=== PATIENT | male | born 1970 ===

== ENCOUNTER 2017-10-01 17:49 | Observation (INO) | payer OTHER ==
[2017-10-01 19:16] LABS: BASO # 0.05 K/mm3 (0.0-2.0); BASO % 0.6 % (0.0-3.0); EOS # 0.1 (0.0-0.7); EOS % 0.6 % (1.5-5.0); GRAN # 6.35 (1.4-6.5); GRAN % 70.2 % (50.0-68.0); HEMATOCRIT 42.4 % (42.0-52.0); LYMPH # 2.1 (1.2-3.4); MEAN CORPUSCULAR HEMOGLOBIN 30.6 pg (25.0-35.0); MEAN PLATELET VOLUME 9.5 fl (7.0-11.0); MONO # 0.5 (0.1-0.6); MONO % 5.6 % (1.0-6.0); RED CELL DISTRIBUTION WIDTH 13.7 % (11.5-14.5)
[2017-10-01 19:26] LABS: INR 1.03 (0.93-1.08); PARTIAL THROMBOPLASTIN TIME 25.9 Seconds (25.1-36.5)
[2017-10-01 19:32] LABS: TROPONIN I < 0.01 ng/mL
[2017-10-01 19:35] LABS: ALB/GLOB RATIO 1.6 (1.1-1.8); ALKALINE PHOSPHATASE 83 U/L (38-126); ALT/SGPT 49 U/L (7-56); AST/SGOT 51 U/L (17-59); BILIRUBIN,TOTAL 0.8 mg/dL (0.2-1.3); BLOOD UREA NITROGEN 20 mg/dL (7-21); CALCIUM 9.6 mg/dL (8.4-10.5); CARBON DIOXIDE 22 mmol/L (21-33); CHLORIDE 97 mmol/L (98-107); GFR AFRICAN-AMERICAN > 60; GLUCOSE,RANDOM 142 mg/dL (70-110); MAGNESIUM 1.6 mg/dL (1.7-2.2); PHOSPHOROUS 4.5 mg/dL (2.5-4.5); POTASSIUM 4.5 mmol/L (3.6-5.0); SODIUM 139 mmol/L (132-148); TOTAL PROTEIN 7.6 g/dL (5.8-8.3)
[2017-10-01] MEDS ORDERED: Sodium Chloride 0.9% 1,000 ML IV STA (20:22)
--- NOTE | 2017-10-01 21:06 | CT ---
EXAM: CT Head Without Intravenous Contrast CLINICAL HISTORY: 47 years old, male; Signs and symptoms; Syncope and collapse TECHNIQUE: Axial computed tomography images of the head/brain without intravenous contrast. All CT scans at this facility use one or more dose reduction techniques, viz.: automated exposure control; ma/kV adjustment per patient size (including targeted exams where dose is matched to indication; i.e. head); or iterative reconstruction technique. COMPARISON: No relevant prior studies available. FINDINGS: Brain: Mild atrophy. No intracranial hemorrhage. No mass. No definite edema. Ventricles: No hydrocephalus. Bones/joints: No acute fracture. Soft tissues: Unremarkable. Sinuses: Scattered minimal to mild mucosal thickening. Mastoid air cells: No mastoid effusion. Orbits: Unremarkable as visualized. IMPRESSION: 1. No definite acute intracranial abnormality. Acute infarction may be CT occult within first 24 hours. If a focal deficit persists, consider followup CT or MRI for further evaluation. 2. Incidental/non-acute findings are described above.
--- NOTE | 2017-10-01 21:22 | ED PDOC ---
Arrival/HPI - General Chief Complaint: Syncope Time Seen by Provider: 10/01/17 17:57 Historian: Patient - History of Present Illness Narrative History of Present Illness (Text): 10/01/17 21:18 47yo male with PMHx significant for hypertension and Diabetes biba for syncopal episode. Patient states he was told that he had syncopal episode at work. States he is not sure what happened. He also sustained chin laceration. Notes his last TD vaccine was last year. He denies any somatic complaint. Denies chest pain, SOB, and focal weakness, dizziness, headache, nausea, vomiting, abdominal pain, any other complaint. Past Medical History - Provider Review Nursing Documentation Reviewed: Yes - Cardiac Hx Hypertension: Yes - Pulmonary Hx Respiratory Disorders: No - Psychiatric Hx Substance Use: No - Anesthesia Hx Anesthesia Reactions: No Family/Social History - Physician Review Nursing Documentation Reviewed: Yes Family/Social History: Unknown Family HX Smoking Status: Unknown If Ever Smoked Hx Alcohol Use: Yes Frequency of alcohol use: Socially Hx Substance Use: No Allergies/Home Meds Allergies/Adverse Reactions: Allergies No Known Allergies Allergy (Verified 10/01/17 18:09) Home Medications: Home Meds Medication Instructions Recorded Confirmed Lisinopril [Zestril] 10 mg PO DAILY 10/01/17 10/01/17 MetFORMIN [glucOPHAGE] 500 mg PO BID 10/01/17 10/01/17 Simvastatin 10 mg PO DAILY 10/01/17 10/01/17 Review of Systems - Physician Review All systems were reviewed & negative as marked: Yes - Review of Systems Constitutional: Normal Eyes: Normal ENT: Normal Respiratory: Normal Cardiovascular: Normal Gastrointestinal: Normal Genitourinary Male: Normal Musculoskeletal: Normal Skin: Laceration (chin) Neurological: Other (Syncope) Endocrine: Normal Hemo/Lymphatic: Normal Psychiatric: Normal Physical Exam Vital Signs Reviewed: Yes Vital Signs Temp Pulse Resp BP Pulse Ox 10/01/17 18:00 97.7 F 78 16 118/70 100 Temperature: Afebrile Blood Pressure: Normal Pulse: Regular Respiratory Rate: Normal Appearance: Positive for: Well-Appearing, Non-Toxic, Comfortable Pain Distress: None Mental Status: Positive for: Alert and Oriented X 3 - Systems Exam Head: Present: Atraumatic, Normocephalic Pupils: Present: PERRL Extroacular Muscles: Present: EOMI Conjunctiva: Present: Normal Mouth: Present: Moist Mucous Membranes Neck: Present: Normal Range of Motion Respiratory/Chest: Present: Clear to Auscultation, Good Air Exchange. No: Respiratory Distress, Accessory Muscle Use Cardiovascular: Present: Regular Rate and Rhythm, Normal S1, S2. No: Murmurs Abdomen: Present: Normal Bowel Sounds. No: Tenderness, Distention, Peritoneal Signs Back: Present: Normal Inspection Upper Extremity: Present: Normal Inspection. No: Cyanosis, Edema Lower Extremity: Present: Normal Inspection. No: Edema Neurological: Present: GCS=15, CN II-XII Intact, Speech Normal, Motor Func Grossly Intact, Normal Sensory Function, Normal Cerebellar Funct, Norm Deep Tendon Reflexes, Gait Normal, Memory Normal, Normal 2Pt Descrimination, Other ( No focal neurological deficit) Skin: Present: Warm, Dry, Normal Color, Laceration (1.6cm linear laceration on chin). No: Rashes Psychiatric: Present: Alert, Oriented x 3, Normal Insight, Normal Concentration Medical Decision Making ED Course and Treatment: 10/01/17 21:24 Pt biba for syncopal episode. He was AAO x3 in ED. Neurologically intact. Lab was unremarkable. Alcohol level of 35 was notee and pt admitted to drinking alcohol last night. Head CT was negative EKG NSR @79bpm. No ST changes. Secondary to the history, cardiogenic or neurologic cause of syncope cannot be r /o. PT will be placed on OBS for further evaluation. All result and plan was DW the pt and he agreed Case was DW Dr. Clemente and pt was admitted. - Lab Interpretations Lab Results: 10/01/17 18:30 10/01/17 18:30 Lab Results 10/01/17 18:30: Alcohol, Quantitative 32 H 10/01/17 18:30: Sodium 139, Potassium 4.5, Chloride 97 L, Carbon Dioxide 22, Anion Gap 24 H, BUN 20, Creatinine 1.2, Est GFR ( Amer) > 60, Est GFR ( Non-Af Amer) > 60, Random Glucose 142 H, Calcium 9.6, Phosphorus 4.5, Magnesium 1.6 L, Total Bilirubin 0.8, AST 51, ALT 49, Alkaline Phosphatase 83, Lactate Dehydrogenase 511, Total Creatine Kinase 543 H, CK-MB (CK-2) 6.0 H, CK-MB (CK-2 ) % 1.1 L, Troponin I < 0.01, Total Protein 7.6, Albumin 4.7, Globulin 2.9, Albumin/Globulin Ratio 1.6 10/01/17 18:30: PT 11.2, INR 1.03, APTT 25.9 10/01/17 18:30: WBC 9.0, RBC 4.71, Hgb 14.4, Hct 42.4, MCV 90.0, MCH 30.6, MCHC 34.0, RDW 13.7, Plt Count 284, MPV 9.5, Gran % 70.2 H, Lymph % (Auto) 23.0, [place] % (Auto) 5.6, Eos % (Auto) 0.6 L, Baso % (Auto) 0.6, Gran # 6.35, Lymph # 2.1, [place] # 0.5, Eos # 0.1, Baso # 0.05 - RAD Interpretation Radiology Orders: 10/01/17 18:19 HEAD W/O CONTRAST [CT] Stat - Medication Orders Current Medication Orders: Aspirin (Ecotrin) 81 mg PO DAILY TERRY Atorvastatin Calcium (Lipitor) 10 mg PO DIN TERRY Famotidine (Pepcid) 20 mg IVP DAILY TERRY Folic Acid (Folic Acid) 1 mg PO DAILY TERRY Hydralazine HCl (Apresoline) 10 mg IVP Q6 PRN PRN Reason: Systolic Blood Pressure Multivitamins/Vitamin C 10 ml/Thiamine HCl 100 mg/ Folic Acid 1 mg/ Sodium Chloride 1,011.2 mls @ 500 mls/hr IV .Q2H2M ONE Stop: 10/01/17 23:27 Sodium Chloride (Sodium Chloride 0.9%) 1,000 mls @ 125 mls/hr IV .Q8H TERRY Last Admin: 10/01/17 22:02 Dose: 125 mls/hr eMAR Start Stop Document 10/01/17 22:02 AD (Rec: 10/01/17 22:02 AD [id number]) Intravenous Solution Start Date 10/01/17 Start Time 21:55 Insulin Human Lispro (Humalog Med) 0 units SC ACHS TERRY PRN Reason: Protocol Lisinopril (Zestril) 10 mg PO DAILY TERRY Lorazepam (Ativan) 1 mg IVP Q1 PRN; Protocol PRN Reason: Symptoms of alcohol withdrawl Multivitamins (Thera Tab) 1 tab PO 0800 [facility] Ondansetron HCl (Zofran Inj) 4 mg IVP Q6H PRN PRN Reason: Nausea/Vomiting Thiamine HCl (Vitamin B1 Tab) 100 mg PO DAILY [facility] Discontinued Medications Bacitracin (Bacitracin) 1 ea TOP ONCE ONE Stop: 10/01/17 21:56 Sodium Chloride (Sodium Chloride 0.9%) 1,000 mls @ 999 mls/hr IV .Q1H1M STA Stop: 10/01/17 21:22 Last Admin: 10/01/17 20:32 Dose: 999 mls/hr eMAR Start Stop Document 10/01/17 20:32 AD (Rec: 10/01/17 20:32 AD [id number]) Intravenous Solution Start Date 10/01/17 Start Time 20:32 Sodium Chloride (Sodium Chloride 0.9%) 1,000 mls @ 150 mls/hr IV .Q6H40M [facility] Procedure: Wound Repair - Consent Obtained Consent obtained: Verbal - Performed by Performed by: Mid-level Provider - Indications Indication(s):: Laceration - Location Location:: Chin Shape:: Linear Dimensions Length cm: 1.6 - Anesthetic Technique Anesthetic Technique: Local Local/Regional Anesthetic:: Lidocaine 1% w/epi (5) - Debris Debris:: None - Irrigated Irrigated with ml of normal saline: 50 - Complexity Complexity:: Intermediate (2 layer) - Muscle repiar layer closed with Muscle repair layer closed with:: # (4), Size (4), Type (chromic), Technique ( interrupted), Wound well approximated, Abx ointment applied, Tetanus up to date - Patient tolerated procedure Patient Tolerated Procedure:: Well Disposition/Present on Arrival - Present on Arrival Any Indicators Present on Arrival: No History of DVT/PE: No History of Uncontrolled Diabetes: No Urinary Catheter: No History of Decub. Ulcer: No History Surgical Site Infection Following: None - Disposition Have Diagnosis and Disposition been Completed?: Yes Diagnosis: Syncope, Chin laceration Disposition: HOSPITALIZED Disposition Time: 21:25 Condition: STABLE
[2017-10-01] MEDS ORDERED: Multivitamin (MVI) 10 ML, Thiamine 100 MG, Folic Acid 1 MG in Sodium Chloride 0.9% 1,00... IV ONE (21:26)
[2017-10-01] MEDS ORDERED: Sodium Chloride 0.9% 1,000 ML IV SCH (21:30)
--- NOTE | 2017-10-01 21:33 | CP.PCM.HP ---
<Chris Aguilar - Last Filed: 10/01/17 22:54> History of Present Illness - History of Present Illness History of Present Illness: CC: syncopal episode Subjective: HPI: Patient is a 47 year old male with past medical history of hyperlipidemia, hypertension, and diabetes who presents to the emergency department via EMS for evaluation and treatment of a syncopal episode. Patient denies specific provoking events. States that this is the first event ever. Occurred as he walked out of the bathroom. States he was dizzy throughout the day. Denies recent travel and sick contacts. Patient denies intractable headache, fever, chills, blurry vision, ringing in the ears, chest pain, shortness of breath, abdominal pain, nausea, vomiting, diarrhea, constipation, and urinary symptoms. ROS: 12 point review of systems negative except as indicated in HPI PMHx: hyperlipidemia, hypertension, and diabetes PSHx: appendectomy and umbilical hernia repair Family Hx: noncontributory Social Hx: 2 bottles of hard liquor per week ETOH use, denies tobacco use, illicit drug use Allergies: No known drug allergies Medications: Please see medication reconciliation Physical Examination: - Constitutional Appears: Non-toxic, No Acute Distress - Head Exam Head Exam: atraumatic, normocephalic - Eye Exam Eye Exam: Normal appearance, PERRL. absent: Scleral icterus - ENT Exam ENT Exam: Wound present on chin; Mucous Membranes Moist - Neck Exam Neck exam: Normal Inspection - Respiratory Exam Respiratory Exam: Clear to auscultation bilaterally; Normal Breathing Pattern - Cardiovascular Exam Cardiovascular Exam: Regular Rate and Rhythm, +S1, +S2. absent: Gallop, JVD - GI/Abdominal Exam GI & Abdominal Exam: Normal Bowel Sounds, absent: Distended, Guarding, Pulsatile Mass, Rebound, Rigid - Extremities Exam Extremities exam: no edema, no cyanosis Negative for: calf tenderness - Neurological Exam Neurological exam: Patient is awake, alert, responds to verbal stimuli, answers questions appropriately, follows commands, and moves extremities past midline; CN II- XII intact bilaterally, muscle strength 5/5 throughout, sensation intact to touch throughout - Psychiatric Exam Psychiatric exam: Normal Affect, Normal Mood - Skin Skin Exam: warm and dry Assessment and Plan: Patient is a 47 year old male with past medical history of hyperlipidemia, hypertension, and diabetes who presents to the emergency department via EMS for evaluation and treatment of a syncopal episode. Syncope - neurogenic vs cardiogenic in nature - CT of the head- no acute intracranial abnormality - EKG reviewed and appreciated- no ST T wave abnormality - Carotid duplex ultrasounds pending - ECHO pending - UDS pending - TSH pending - seizure precautions - cardiology consulted- appreciate recommendations - neurology consulted- appreciate recommendations Potential Ethanol Abuse/Withdrawal - CIWA - high risk fall precautions - ativan 1mg q6 prn withdrawl symptoms - consider adding librium or geodon if sxs are not controlled - banana bag - multivitamin, thiamine, and folate supplement Rhabdomyolysis - mild in nature - CK elevated, repeat CK in AM - IVF NS @ 125 - CKMB elevated- likely 2/2 to rhabdomyolysis Wound - ED informed to evaluate and place sutures if indicated - wound care - bacitracin Electrolyte Abnormality - hypomagnesemia- repleted and monitor closely via CMP Hx of Htn - c/w home lisinopril - hydralazine 5mg IV q6 prn SBP > 180, holding parameters- do not administer if HR is > 100 bpm Hx of Hyperlipidemia - c/w statin- would hold in setting of rhabdomyolysis however BUN/creatinine WNL - lipid profile pending Hx of Diabetes - hold home diabetic medications - fingersticks ACHS - insulin sliding scale- lispro medium - resume diet as carb consistent Prophylaxis - DVT ppx- subq heparin as per jeanne score - GI ppx- famotidine Patient case discussed with and plan approved by attending physician. Present on Admission - Present on Admission Any Indicators Present on Admission: No Past Patient History - Past Social History Smoking Status: Unknown If Ever Smoked - CARDIAC Hx Hypertension: Yes - PULMONARY Hx Respiratory Disorders: No - PSYCHIATRIC Hx Substance Use: No - ANESTHESIA Hx Anesthesia Reactions: No Meds Allergies/Adverse Reactions: Allergies Allergy/AdvReac Type Severity Reaction Status Date / Time No Known Allergies Allergy Verified 10/01/17 18:09 Results - Vital Signs Recent Vital Signs: Last Vital Signs Temp 97.7 F 10/01/17 18:00 Pulse 78 10/01/17 18:00 Resp 16 10/01/17 18:00 BP 118/70 10/01/17 18:00 Pulse Ox 100 10/01/17 18:00 - Labs Result Diagrams: 10/01/17 18:30 10/01/17 18:30 Labs: Laboratory Results - last 24 hr 12/06/17 12/06/17 12/06/17 18:30 18:30 18:30 WBC 9.0 RBC 4.71 Hgb 14.4 Hct 42.4 MCV 90.0 MCH 30.6 MCHC 34.0 RDW 13.7 Plt Count 284 MPV 9.5 Gran % 70.2 H Lymph % (Auto) 23.0 [place] % (Auto) 5.6 Eos % (Auto) 0.6 L Baso % (Auto) 0.6 Gran # 6.35 Lymph # 2.1 [place] # 0.5 Eos # 0.1 Baso # 0.05 PT 11.2 INR 1.03 APTT 25.9 Sodium 139 Potassium 4.5 Chloride 97 L Carbon Dioxide 22 Anion Gap 24 H BUN 20 Creatinine 1.2 Est GFR ( Amer) > 60 Est GFR (Non-Af Amer) > 60 Random Glucose 142 H Calcium 9.6 Phosphorus 4.5 Magnesium 1.6 L Total Bilirubin 0.8 AST 51 ALT 49 Alkaline Phosphatase 83 Lactate Dehydrogenase 511 Total Creatine Kinase 543 H CK-MB (CK-2) 6.0 H CK-MB (CK-2) % 1.1 L Troponin I < 0.01 Total Protein 7.6 Albumin 4.7 Globulin 2.9 Albumin/Globulin Ratio 1.6 Alcohol, Quantitative 10/01/17 18:30 WBC RBC Hgb Hct MCV MCH MCHC RDW Plt Count MPV Gran % Lymph % (Auto) [place] % (Auto) Eos % (Auto) Baso % (Auto) Gran # Lymph # [place] # Eos # Baso # PT INR APTT Sodium Potassium Chloride Carbon Dioxide Anion Gap BUN Creatinine Est GFR ( Amer) Est GFR (Non-Af Amer) Random Glucose Calcium Phosphorus Magnesium Total Bilirubin AST ALT Alkaline Phosphatase Lactate Dehydrogenase Total Creatine Kinase CK-MB (CK-2) CK-MB (CK-2) % Troponin I Total Protein Albumin Globulin Albumin/Globulin Ratio Alcohol, Quantitative 32 H <Landy Avilez - Last Filed: 10/02/17 00:29> Results - Vital Signs Recent Vital Signs: Last Vital Signs Temp 97.7 F 10/01/17 18:00 Pulse 78 10/01/17 18:00 Resp 20 10/01/17 22:54 BP 118/70 10/01/17 18:00 Pulse Ox 100 10/01/17 18:00 - Labs Result Diagrams: 10/01/17 18:30 10/01/17 18:30 Labs: Laboratory Results - last 24 hr 10/01/17 10/01/17 10/01/17 21:31 21:31 23:30 Lactate Dehydrogenase 452 Total Creatine Kinase 436 H Urine Color Yellow Urine Appearance Clear Urine pH 5.5 Ur Specific [place] >= 1.030 Urine Protein Trace H Urine Glucose (UA) Negative Urine Ketones 15 H Urine Blood Negative Urine Nitrate Negative Urine Bilirubin Negative Urine Urobilinogen 0.2 Ur Leukocyte Esterase Negative Urine RBC Negative Urine WBC 1 - 3 Ur Epithelial Cells 1 - 3 Urine Bacteria Few Urine Opiates Screen Negative Urine Methadone Screen Negative Ur Barbiturates Screen Negative Ur Phencyclidine Scrn Negative Ur Amphetamines Screen Negative U Benzodiazepines Scrn Negative U Oth Cocaine Metabols Negative U Cannabinoids Screen Negative Attending/Attestation - Attestation I have personally seen and examined this patient.: Yes I have fully participated in the care of the patient.: Yes I have reviewed all pertinent clinical information: Yes Notes (Text): 10/02/17 00:19 Pt's laceration on his chin was sutured in the ER. Cat scan of the head which was done in the ER was reported negative for any acute intracranial findings. 10/02/17 00:28 Additional Diagnosis:laceration chin
[2017-10-01 21:38] LABS: PH,URINE 5.5 (4.7-8.0); URINE BILIRUBIN NEGATIVE (NEGATIVE); URINE BLOOD NEGATIVE (NEGATIVE); URINE GLUCOSE (UA) NEGATIVE (NEGATIVE); URINE KETONE 15 mg/dL (NEGATIVE); URINE LEUKOCYTE ESTERASE NEGATIVE Leu/uL (NEGATIVE); URINE PROTEIN TRACE mg/dL (<30 mg/dL); URINE UROBILINOGEN 0.2 E.U./dL (<1 E.U./dL)
[2017-10-01 21:41] LABS: URINE APPEARANCE CLEAR (CLEAR); URINE COLOR YELLOW (YELLOW)
[2017-10-01 21:51] LABS: URINE BACTERIA FEW (NEG); URINE RBC NEGATIVE /hpf (0-2)
[2017-10-01] MEDS ORDERED: Bacitracin 500 Units/gm Oint Foilpak UD TOP ONE (21:55)
[2017-10-01] MEDS: Sodium Chloride 0.9% 1,000 ML IV SCH (22:02)
[2017-10-01 23:03] VITALS: BMI 25.1
[2017-10-01] MEDS: Insulin Lispro (humaLOG) MEDIUM Coverage SC SCH (23:21)
[2017-10-01 23:37] LABS: CHOLESTEROL 164 mg/dL (130-200)
[2017-10-02 00:01] LABS: TROPONIN I < 0.01 ng/mL
[2017-10-02] MEDS: Sodium Chloride 0.9% 1,000 ML IV SCH ×3 (05:58→20:55)
[2017-10-02 06:31] LABS: BASO # 0.04 K/mm3 (0.0-2.0); BASO % 0.6 % (0.0-3.0); EOS # 0.1 (0.0-0.7); EOS % 1.3 % (1.5-5.0); GRAN # 3.22 (1.4-6.5); GRAN % 47.8 % (50.0-68.0); HEMATOCRIT 36.1 % (42.0-52.0); LYMPH # 2.7 (1.2-3.4); LYMPH % 40.7 % (22.0-35.0); MEAN CELL VOLUME 89.4 fl (80.0-105.0); MEAN CORPUSCULAR HGB CONC 33.5 g/dl (31.0-37.0); MEAN PLATELET VOLUME 9.6 fl (7.0-11.0); MONO # 0.7 (0.1-0.6); MONO % 9.6 % (1.0-6.0); RED CELL DISTRIBUTION WIDTH 13.4 % (11.5-14.5); WHITE BLOOD COUNT 6.7 10^3/ul (4.5-11.0)
[2017-10-02 07:23] LABS: TROPONIN I < 0.01 ng/mL
[2017-10-02 07:50] LABS: POTASSIUM 3.8 mmol/L (3.6-5.0)
[2017-10-02 08:04] VITALS: O2SAT 99
[2017-10-02 08:15] LABS: ALB/GLOB RATIO 1.3 (1.1-1.8); ALKALINE PHOSPHATASE 77 U/L (38-126); ALT/SGPT 43 U/L (7-56); AST/SGOT 66 U/L (17-59); BILIRUBIN,TOTAL 1.2 mg/dL (0.2-1.3); BLOOD UREA NITROGEN 18 mg/dL (7-21); CALCIUM 8.4 mg/dL (8.4-10.5); CARBON DIOXIDE 29 mmol/L (21-33); CHLORIDE 104 mmol/L (98-107); GFR AFRICAN-AMERICAN > 60; GLUCOSE,RANDOM 154 mg/dL (70-110); MAGNESIUM 1.5 mg/dL (1.7-2.2); PHOSPHOROUS 3.5 mg/dL (2.5-4.5); SODIUM 138 mmol/L (132-148); TOTAL PROTEIN 5.8 g/dL (5.8-8.3)
[2017-10-02] MEDS: Insulin Lispro (humaLOG) MEDIUM Coverage SC SCH ×4 (08:57→21:30)
--- NOTE | 2017-10-02 09:49 | CARD ---
APPROVED REPORT EKG Measurement Heart [id number] <Conclusion> Normal sinus rhythm Normal ECG
--- NOTE | 2017-10-02 09:53 | CARD ---
APPROVED REPORT EKG Measurement Heart [id number] <Conclusion> Normal sinus rhythm Normal ECG
[2017-10-02] MEDS: Multivitamin Therapeutic Tab PO SCH (10:20)
[2017-10-02 11:43] LABS: TROPONIN I < 0.01 ng/mL
--- NOTE | 2017-10-02 11:47 | CON ---
DATE: NEUROLOGY CONSULTATION REPORT REASON FOR CONSULTATION: Episode of passing out. HISTORY OF PRESENT ILLNESS: The patient is a 47-year-old male who has been asked for evaluation of episode of passing out. The patient was walking in the bathroom and he felt dizzy and after that, he felt sick and he just pass out. He has not had any chest pain or palpitation. No dizziness. He never passed out before. At the moment, he feels fine. He denies any urinary incontinence or tongue biting. REVIEW OF SYSTEMS: Denies any headache, dizziness, chest pain, shortness of breath, abdominal pain, constipation, diarrhea, dysuria, cough or sputum production. PAST MEDICAL HISTORY: Include hypertension, diabetes mellitus, hypercholesteremia. MEDICATIONS AT HOME: Include simvastatin, lisinopril and metformin. ALLERGIES: NO KNOWN DRUG ALLERGIES. SOCIAL HISTORY: He denies smoking, socially drinks alcohol. Denies use of any illicit drugs. FAMILY HISTORY: Reviewed and noncontributory to the case. PHYSICAL EXAMINATION: GENERAL: The patient is a middle-aged male lying on the bed, in no acute distress. VITAL SIGNS: His blood pressure is 132/85, heart rate is 72 per minute, breathing at the rate of 16 per minute and temperature is 98.4 degrees Fahrenheit. HEENT: Head is normocephalic and atraumatic. NECK: Supple. There are no carotid bruits. LUNGS: Clear. CVS: S1 and S2 audible. No murmurs. ABDOMEN: Soft and nontender. Bowel sounds are present. NEUROLOGY: Mental status: The patient is awake, alert, and oriented to time, place, and person. Speech is fluent. Naming and repetition normal. Memory and cognition are intact. Cranial nerve examination; pupils are 3 mm bilaterally reactive to light. Visual thomas are full. Extraocular movements are intact. There is no facial asymmetry. Palate is upgoing bilaterally and tongue is midline. Motor examination; tone is normal. Power is 5/5 bilaterally in all extremities. Reflexes are +2 and symmetrical. Plantars are downgoing bilaterally. Cerebellar examination; finger to nose shows no dysmetria. Sensory examination is intact to soft touch, pinprick and vibration sense. Gait is deferred at the moment. LABORATORY DATA: Labs reviewed. CT scan of the head, no acute intracranial pathology. WBC 6.7, hemoglobin 12.1, hematocrit 36.1 and platelets of 243. Sodium is 138, potassium 3.8, chloride 104, carbon dioxide 29, BUN of 18, creatinine 1.0 and glucose of 154. IMPRESSION: Status post syncope, rule out seizure versus cardiac arrhythmia. RECOMMENDATIONS: 1. The patient to have cardiac monitoring to rule out any cardiac arrhythmias. 2. The patient to have an electroencephalogram. 3. The patient has no focal neurologic deficits. 4. Please continue other treatment and supportive care. Thank you for the opportunity to participate in the care of this patient. Negrita Narvaez MD
[2017-10-02] MEDS ORDERED: Magnesium Sulfate 1 gm in D5W 1 GM/100 ML BAG IVPB ONE (12:34)
--- NOTE | 2017-10-02 14:11 | CON ---
DATE: 10/02/2017 LOCATION: The patient is in room 370, bed 1. REASON FOR CONSULTATION: Syncope, hypertension, diabetes. HISTORY OF PRESENT ILLNESS: A 47-year-old male with known case of hypertension, diabetes. States that he went to bathroom and when he came out of the bathroom, he had syncopal episode. He found himself on the floor. There is no history of palpitation, chest pain, nausea, vomiting prior to this syncopal episode. Later on he states, he felt some nausea. The patient denies any prior history of any cardiac symptoms of chest pain, shortness of breath, or palpitation. PAST MEDICAL HISTORY: Positive for diabetes, hypertension, hyperlipidemia. PAST SURGICAL HISTORY: Positive for appendectomy and umbilical hernia surgery. FAMILY HISTORY: Mother has diabetes and hypertension. PERSONAL HISTORY: He drinks 2 bottles of hard liquor per week. Denies smoking and denies taking any illicit drugs. ALLERGIES: NO KNOWN ALLERGIES. HOME MEDICATIONS: The patient was on simvastatin 10 mg daily, lisinopril 10 mg daily, metformin 500 b.i.d. REVIEW OF SYSTEMS: All other systems reviewed. Positives mentioned in the history, others are negative. PHYSICAL EXAMINATION: VITAL SIGNS: Blood pressure 132/85, respirations 20, pulse 72, temperature 98.4. HEENT: Head is normocephalic. Eyes: Pupils normal. Conjunctivae normal. Nose and throat normal. NECK: JVP low. Carotid equal. THORAX: AP diameter normal. LUNGS: Clear. CARDIOVASCULAR: S1 and S2. ABDOMEN: Soft. No tenderness. No organomegaly. Bowel sounds normal. EXTREMITIES: No clubbing. No cyanosis. LABORATORY DATA: WBC 6.7, hemoglobin 12.1, yesterday hemoglobin was 14.4. Hematocrit 36.1, yesterday hematocrit was 42.4, platelet 243. Sodium 138, potassium 3.8, BUN 18, creatinine 1.0, magnesium 1.5, calcium 8.4, phosphorous 3.5. CPK on admission 543 and today is 370. Troponin x4 is negative. Total protein and albumin is normal. EKG showed normal sinus rhythm, 79 per minute. CAT scan of the head, no acute intracranial abnormality. DIAGNOSES: Syncope, hypertension, diabetes mellitus, hyperlipidemia. PLAN: Continue to monitor the patient for arrhythmia. Echo and carotid ultrasound has been already ordered. Consult with Neurologist, Dr. Solange Rees, has been ordered. Depending on neuro workup, we will do the stress test later as an outpatient. Right now clinically, cardiac status is stable and we will follow the echo report and we will continue to monitor for arrhythmia and from cardiac point of view, the patient need any procedures. From cardiac point of view, we can proceed with that. We will follow with you. Vika Goode MD
--- NOTE | 2017-10-02 16:17 | CP.PCM.PN ---
<Mak Ornelas - Last Filed: 10/02/17 16:41> Subjective - Date & Time of Evaluation Date of Evaluation: 10/02/17 Time of Evaluation: 08:00 - Subjective Subjective: Mak Ornelas DO, PGY-1, Hospitalist Service Patient seen and examined at bedside. Patient reports that he ate some greasy food and fifteen minutes later he felt nauseous, went to the bathroom, wretched , did not vomit, urinated, walked out of the bathroom, felt dizzy, and just straigt up passed out and does not remember a thing. He was awoken by his coworkers after an unknown period of time. He was at work in the kitchen of a restaurant. He denies any preceding chest pain, palpitations, cough, thunder- clap headache, or seizure activity. The nurse, Odin, acted as a buncher machine to verify vance elements of the history and examination. Objective - Vital Signs/Intake and Output Vital Signs (last 24 hours): Temp Pulse Resp BP Pulse Ox 98.4 F 72 20 132/85 99 10/02/17 08:03 10/02/17 08:03 10/02/17 08:03 10/02/17 08:03 10/02/17 08:03 Intake and Output: 10/02/17 10/02/17 06:59 18:59 Intake Total 1000 Balance 1000 - Medications Medications: Current Medications Aspirin (Ecotrin) 81 mg PO DAILY [facility] Last Admin: 10/02/17 10:19 Dose: Not Given Atorvastatin Calcium (Lipitor) 10 mg PO DIN [facility] Famotidine (Pepcid) 20 mg PO DAILY [facility] Fenofibrate (Tricor) 145 mg PO DAILY [facility] Last Admin: 10/02/17 14:52 Dose: 145 mg Folic Acid (Folic Acid) 1 mg PO DAILY [facility] Last Admin: 10/02/17 10:20 Dose: Not Given Hydralazine HCl (Apresoline) 10 mg IVP Q6 PRN PRN Reason: Systolic Blood Pressure Sodium Chloride (Sodium Chloride 0.9%) 1,000 mls @ 125 mls/hr IV .Q8H [facility] Last Admin: 10/02/17 15:31 Dose: 125 mls/hr Insulin Human Lispro (Humalog Med) 0 units SC ACHS [facility] PRN Reason: Protocol Last Admin: 10/02/17 12:32 Dose: 3 units Lisinopril (Zestril) 10 mg PO DAILY [facility] Last Admin: 10/02/17 10:20 Dose: Not Given Lorazepam (Ativan) 1 mg IVP Q1 PRN; Protocol PRN Reason: Symptoms of alcohol withdrawl Multivitamins (Thera Tab) 1 tab PO 0800 [facility] Last Admin: 10/02/17 10:20 Dose: Not Given Ondansetron HCl (Zofran Inj) 4 mg IVP Q6H PRN PRN Reason: Nausea/Vomiting Thiamine HCl (Vitamin B1 Tab) 100 mg PO DAILY [facility] Last Admin: 10/02/17 10:20 Dose: Not Given - Labs Labs: 10/02/17 05:40 10/02/17 05:40 PT 11.2 SECONDS (9.4-12.5) 10/01/17 18:30 INR 1.03 (0.93-1.08) 10/01/17 18:30 APTT 25.9 Seconds (25.1-36.5) 10/01/17 18:30 - Constitutional Appears: Well, Non-toxic - Head Exam Head Exam: ATRAUMATIC, NORMOCEPHALIC Additional comments: stitches noted on chin of patient, but mostly obscured my overlying goatee - Eye Exam Eye Exam: EOMI, Normal appearance - ENT Exam ENT Exam: Mucous Membranes Moist, Normal Oropharynx - Cardiovascular Exam Cardiovascular Exam: RRR, +S1, +S2 - GI/Abdominal Exam GI & Abdominal Exam: Soft, Normal Bowel Sounds - Extremities Exam Extremities Exam: Normal Capillary Refill, Normal Inspection - Back Exam Back Exam: NORMAL INSPECTION. absent: CVA tenderness (L), CVA tenderness (R) - Neurological Exam Neurological Exam: Alert, Awake, CN II-XII Intact, Oriented x3 Additional comments: Cornelius-Yu Quitman maneuver elicited no nystagmus - Psychiatric Exam Psychiatric exam: Normal Affect, Normal Mood - Skin Skin Exam: Dry, Intact, Normal Color, Warm Assessment and Plan - Assessment and Plan (Free Text) Assessment: 47 year old male with a past medical history of hypertension, DM II, dyslipidemia, and alcohol use who presents after a syncopal episode. Plan: 1) Syncopal episode - orthostatic blood pressure not indicative of orthostatic hypotension - CT of the head- no acute intracranial abnormality - EKG reviewed and appreciated- no ST T wave abnormality - Carotid duplex ultrasounds pending - ECHO pending - UDS negative - blood alcohol 32 - TSH 1.15 normal - seizure precautions - cardiology consulted- appreciate recommendations - neurology consulted- appreciate recommendations 2) Potential Ethanol Abuse/Withdrawal - CIWA - high risk fall precautions - ativan 1mg q6 prn withdrawal symptoms - banana bag - multivitamin, thiamine, and folate supplement 3)Electrolyte Abnormality - hypomagnesemia- repleted and monitor closely via CMP - c/w home lisinopril - hydralazine 5mg IV q6 prn SBP > 180, holding parameters- do not administer if HR is > 100 bpm 4) Dyslipidemia - lipid profile shows an elevated triglyceride, but patient was not fasting. 5) Diabetes - hold home diabetic medications - fingersticks ACHS - insulin sliding scale- lispro medium - resume diet as carb consistent - HgbA1c of 7.6 Prophylaxis - DVT ppx- subq heparin as per jeanne score - GI ppx- famotidine <Dash Perez - Last Filed: 10/02/17 17:50> Objective - Vital Signs/Intake and Output Vital Signs (last 24 hours): Temp Pulse Resp BP Pulse Ox 98.4 F 72 20 132/85 99 10/02/17 08:03 10/02/17 08:03 10/02/17 08:03 10/02/17 08:03 10/02/17 08:03 Intake and Output: 10/02/17 10/02/17 06:59 18:59 Intake Total 1000 Balance 1000 - Medications Medications: Current Medications Aspirin (Ecotrin) 81 mg PO DAILY [facility] Last Admin: 10/02/17 10:19 Dose: Not Given Atorvastatin Calcium (Lipitor) 10 mg PO DIN [facility] Last Admin: 10/02/17 17:36 Dose: 10 mg Enoxaparin Sodium (Lovenox) 40 mg SC DAILY [facility] PRN Reason: Protocol Last Admin: 10/02/17 17:37 Dose: 40 mg Famotidine (Pepcid) 20 mg PO DAILY [facility] Fenofibrate (Tricor) 145 mg PO DAILY [facility] Last Admin: 10/02/17 14:52 Dose: 145 mg Folic Acid (Folic Acid) 1 mg PO DAILY [facility] Last Admin: 10/02/17 10:20 Dose: Not Given Hydralazine HCl (Apresoline) 10 mg IVP Q6 PRN PRN Reason: Systolic Blood Pressure Sodium Chloride (Sodium Chloride 0.9%) 1,000 mls @ 125 mls/hr IV .Q8H [facility] Last Admin: 10/02/17 15:31 Dose: 125 mls/hr Insulin Human Lispro (Humalog Med) 0 units SC ACHS [facility] PRN Reason: Protocol Last Admin: 10/02/17 17:36 Dose: 5 units Lisinopril (Zestril) 10 mg PO DAILY [facility] Last Admin: 10/02/17 10:20 Dose: Not Given Lorazepam (Ativan) 1 mg IVP Q6H PRN; Protocol PRN Reason: Symptoms of alcohol withdrawl Multivitamins (Thera Tab) 1 tab PO 0800 [facility] Last Admin: 10/02/17 10:20 Dose: Not Given Ondansetron HCl (Zofran Inj) 4 mg IVP Q6H PRN PRN Reason: Nausea/Vomiting Thiamine HCl (Vitamin B1 Tab) 100 mg PO DAILY [facility] Last Admin: 10/02/17 10:20 Dose: Not Given - Labs Labs: 10/02/17 05:40 10/02/17 05:40 PT 11.2 SECONDS (9.4-12.5) 10/01/17 18:30 INR 1.03 (0.93-1.08) 10/01/17 18:30 APTT 25.9 Seconds (25.1-36.5) 10/01/17 18:30 Attending/Attestation - Attestation I have personally seen and examined this patient.: Yes I have fully participated in the care of the patient.: Yes I have reviewed all pertinent clinical information, including history, physical exam and plan: Yes Notes (Text): 10/02/17 17:45 47 year old male with past medical history of hypertension, diabetes and alcohol abuse who presented after syncopal episode yesterday, possibly vasovagal. Cardiology and neurology evaluation were appreciated. Workup is pending including EEG, echocardiogram and carotid doppler results. He was counselled on alcohol abstinence. He is on lisinopril for hypertension and hydralazine prn was added. Will monitor. Triglycerides were elevated however will repeat for fasting lipid panel is AM. Dash Perez MD Hospitalist.
[2017-10-02] MEDS: Enoxaparin 40 mg Syringe SC SCH (17:37)
--- NOTE | 2017-10-02 19:45 | US ---
PROCEDURE: Bilateral carotid artery duplex ultrasound HISTORY: Carotid stenosis syncope PHYSICIAN(S): Gianni Ryan MD. TECHNIQUE: Duplex sonography and color-flow Doppler were used to evaluate the carotid bifurcations and limited segments of the vertebral arteries bilaterally. FINDINGS: There is mild smooth hypoechoic plaque noted at the carotid bifurcations bilaterally. The peak systolic velocity in the proximal right internal carotid artery is 99 cm/sec. This corresponds to a 20 to 39% proximal right ICA stenosis. Normal systolic velocities are noted in the proximal right external carotid artery. There is antegrade flow in the right vertebral artery. The peak systolic velocity in the proximal left internal carotid artery is 90 cm/sec. This corresponds to a 20 to 39% proximal left ICA stenosis. Normal systolic velocities are noted in the proximal left external carotid artery. There is antegrade flow in the left vertebral artery. IMPRESSION: 1. Bilateral 20-39% proximal ICA stenoses. 2. Antegrade flow in both vertebral arteries.
--- NOTE | 2017-10-02 20:26 | CARD ---
APPROVED REPORT EXAM: Two-dimensional and M-mode echocardiogram with Doppler and color Doppler. INDICATION Syncope 2D DIMENSIONS Left Atrium (2D)3.3 (1.6-4.0cm)IVSd1.1 (0.7-1.1cm) LVDd4.7 (3.9-5.9cm)PWd1.0 (0.7-1.1cm) LVDs3.4 (2.5-4.0cm)FS (%) 28.4 % LVEF (%)54.8 (>50%) M-Mode DIMENSIONS Aortic Root2.80 (2.2-3.7cm)Aortic Cusp Exc.1.80 (1.5-2.0cm) Aortic Valve AoV Peak Qgycqfxr772.0cm/Andree Peak GR.9mmHg Mitral Valve MV E Xqvnvyur81.5cm/sMV A Pizvlccm64.0cm/sE/A ratio1.1 TDI E/Lateral E'0.0E/Medial E'0.0 Tricuspid Valve TR Peak [id number]/sRAP [id number] Peak Gr.10mmHg [id number] LEFT VENTRICLE The left ventricle is normal size. There is normal left ventricular wall thickness. The left ventricular function is normal.EF-55% There is normal LV segmental wall motion. The left ventricular diastolic function is normal. No left ventricle thrombus noted on this study. There is no ventricular septal defect visualized. There is no left ventricular aneurysm. There is no mass noted in the left ventricle. RIGHT VENTRICLE The right ventricle is normal size. There is normal right ventricular wall thickness. The right ventricular systolic function is normal. ATRIA The left atrium size is normal. The right atrium size is normal. The interatrial septum is intact with no evidence for an atrial septal defect. AORTIC VALVE The aortic valve is normal in structure. No aortic regurgitation is present. There is no aortic valvular stenosis. There is no aortic valvular vegetation. MITRAL VALVE The mitral valve is normal in structure. Mitral regurgitation is trace. There is no mitral valve stenosis. There is no evidence of mitral valve prolapse. TRICUSPID VALVE The tricuspid valve is normal in structure. There is trace tricuspid regurgitation. There is no tricuspid valve stenosis. There is no tricuspid valve prolapse or vegetation. PULMONIC VALVE The pulmonary valve is normal in structure. There is trace pulmonic valvular regurgitation. There is no pulmonic valvular stenosis. GREAT VESSELS The aortic root is normal in size. The ascending aorta is normal in size. The pulmonary artery is normal. The IVC is normal in size and collapses >50% with inspiration. PERICARDIAL EFFUSION There is no pleural effusion. There is no pericardial effusion. <Conclusion> Normal chamber Size. EF-55% Trace MR/TR/PI RVSP-20 mmof h g. No Vegetation or thrombus noted.
[2017-10-03] MEDS: Sodium Chloride 0.9% 1,000 ML IV SCH (05:36)
[2017-10-03 06:51] LABS: BASO # 0.02 K/mm3 (0.0-2.0); BASO % 0.4 % (0.0-3.0); EOS # 0.2 (0.0-0.7); EOS % 2.7 % (1.5-5.0); GRAN # 2.58 (1.4-6.5); GRAN % 46.9 % (50.0-68.0); HEMATOCRIT 35.8 % (42.0-52.0); LYMPH # 2.4 (1.2-3.4); LYMPH % 43.5 % (22.0-35.0); MEAN CELL VOLUME 89.3 fl (80.0-105.0); MEAN CORPUSCULAR HEMOGLOBIN 30.2 pg (25.0-35.0); MEAN CORPUSCULAR HGB CONC 33.8 g/dl (31.0-37.0); MEAN PLATELET VOLUME 9.9 fl (7.0-11.0); MONO # 0.4 (0.1-0.6); MONO % 6.5 % (1.0-6.0); RED CELL DISTRIBUTION WIDTH 13.1 % (11.5-14.5); WHITE BLOOD COUNT 5.5 10^3/ul (4.5-11.0)
[2017-10-03 07:24] LABS: ALB/GLOB RATIO 1.3 (1.1-1.8); ALKALINE PHOSPHATASE 68 U/L (38-126); ALT/SGPT 40 U/L (7-56); AST/SGOT 47 U/L (17-59); BILIRUBIN,TOTAL 1.2 mg/dL (0.2-1.3); BLOOD UREA NITROGEN 10 mg/dL (7-21); CALCIUM 8.7 mg/dL (8.4-10.5); CARBON DIOXIDE 28 mmol/L (21-33); CHLORIDE 105 mmol/L (98-107); CHOLESTEROL 129 mg/dL (130-200); GFR AFRICAN-AMERICAN > 60; GLUCOSE,RANDOM 164 mg/dL (70-110); POTASSIUM 3.7 mmol/L (3.6-5.0); SODIUM 141 mmol/L (132-148)
[2017-10-03 08:58] VITALS: RESP 18; TEMP 97.8
[2017-10-03] MEDS: Insulin Lispro (humaLOG) MEDIUM Coverage SC SCH ×2 (10:31→12:23)
[2017-10-03] MEDS: Enoxaparin 40 mg Syringe SC SCH (10:36)
[2017-10-03] MEDS: Multivitamin Therapeutic Tab PO SCH (10:37)
[2017-10-03 10:42] VITALS: BP 155/90; PULSE 78
--- NOTE | 2017-10-03 13:47 | PN ---
DATE: 10/03/2017 LOCATION: The patient is in room 370, bed 1. REASON FOR CONSULTATION: Syncope, hypertension, and diabetes. SUBJECTIVE: The patient is conscious and alert. Denies any chest pain, shortness of breath, or palpitation. The patient is lying comfortably in bed at present. PHYSICAL EXAMINATION: VITAL SIGNS: Blood pressure 155/93, yesterday blood pressure was 132/85, respirations 18, pulse 78, and temperature 97.8. HEENT: Head is normocephalic. Eyes; pupils are normal. Conjunctivae normal. Nose and throat normal. NECK: JVP is low. Carotids are equal. THORAX: AP diameter normal. LUNGS: Clear. CARDIOVASCULAR: S1 and S2. ABDOMEN: Soft and nontender. No organomegaly. Bowel sounds normal. EXTREMITIES: No clubbing. No cyanosis. LABORATORY DATA: WBC 5.5, hemoglobin 12.1, hematocrit 35.8, and platelets 230. Sodium 141, potassium 3.7, BUN 10, creatinine 0.9, and sugar 274. AST and ALT normal. Total protein and albumin normal. The patient had carotid ultrasound showed bilateral 20% to 39% proximal ICA stenosis. Echocardiogram showed normal chamber size, EF 55%, trace MR, trace TR, trace PI. Normal RVSP. DIAGNOSES: Syncope, hypertension, diabetes mellitus, and hyperlipidemia. PLAN: Monitor did not show any arrhythmia so far. The patient is on aspirin 81 mg daily, Lipitor 10 mg daily, Lovenox 40 subcutaneously daily, TriCor 145 p.o. daily, and lisinopril 10 mg daily. We will continue present therapy and completed then the patient will go home and we will do nuclear stress test as an outpatient already discussed with the patient. We will follow with you. Vika Goode MD
--- NOTE | 2017-10-03 16:30 | CP.PCM.DIS ---
<Mak Ornelas - Last Filed: 10/03/17 16:31> Provider - Provider Date of Admission: 10/01/17 21:17 Attending physician: Dash Perez MD Primary care physician: NO PRIMARY CARE PROVIDER Consults: Dr. Gibson Cardiology Dr. Negrita Narvaez Time Spent in preparation of Discharge (in minutes): 45 Hospital Course - Lab Results Lab Results: Most Recent Lab Values WBC 5.5 10^3/ul (4.5-11.0) 10/03/17 05:30 RBC 4.01 10^6/uL (3.5-6.1) 10/03/17 05:30 Hgb 12.1 g/dL (14.0-18.0) L 10/03/17 05:30 Hct 35.8 % (42.0-52.0) L 10/03/17 05:30 MCV 89.3 fl (80.0-105.0) 10/03/17 05:30 MCH 30.2 pg (25.0-35.0) 10/03/17 05:30 MCHC 33.8 g/dl (31.0-37.0) 10/03/17 05:30 RDW 13.1 % (11.5-14.5) 10/03/17 05:30 Plt Count 230 10^3/uL (120.0-450.0) 10/03/17 05:30 MPV 9.9 fl (7.0-11.0) 10/03/17 05:30 Gran % 46.9 % (50.0-68.0) L 10/03/17 05:30 Lymph % (Auto) 43.5 % (22.0-35.0) H 10/03/17 05:30 [place] % (Auto) 6.5 % (1.0-6.0) H 10/03/17 05:30 Eos % (Auto) 2.7 % (1.5-5.0) 10/03/17 05:30 Baso % (Auto) 0.4 % (0.0-3.0) 10/03/17 05:30 Gran # 2.58 (1.4-6.5) 10/03/17 05:30 Lymph # 2.4 (1.2-3.4) 10/03/17 05:30 [place] # 0.4 (0.1-0.6) 10/03/17 05:30 Eos # 0.2 (0.0-0.7) 10/03/17 05:30 Baso # 0.02 K/mm3 (0.0-2.0) 10/03/17 05:30 PT 11.2 SECONDS (9.4-12.5) 10/01/17 18:30 INR 1.03 (0.93-1.08) 10/01/17 18:30 APTT 25.9 Seconds (25.1-36.5) 10/01/17 18:30 Sodium 141 mmol/L (132-148) 10/03/17 05:30 Potassium 3.7 mmol/L (3.6-5.0) 10/03/17 05:30 Chloride 105 mmol/L (98-107) 10/03/17 05:30 Carbon Dioxide 28 mmol/L (21-33) 10/03/17 05:30 Anion Gap 11 (10-20) 10/03/17 05:30 BUN 10 mg/dL (7-21) 10/03/17 05:30 Creatinine 0.9 mg/dl (0.8-1.5) 10/03/17 05:30 Est GFR ( Amer) > 60 10/03/17 05:30 Est GFR (Non-Af Amer) > 60 10/03/17 05:30 POC Glucose (mg/dL) 274 mg/dL (65-110) H 10/03/17 11:25 Random Glucose 164 mg/dL (70-110) H 10/03/17 05:30 Hemoglobin A1c 7.8 % (4.2-6.5) H 10/01/17 18:30 Calcium 8.7 mg/dL (8.4-10.5) 10/03/17 05:30 Phosphorus 3.5 mg/dL (2.5-4.5) 10/02/17 05:40 Magnesium 1.5 mg/dL (1.7-2.2) L 10/02/17 05:40 Total Bilirubin 1.2 mg/dL (0.2-1.3) 10/03/17 05:30 AST 47 U/L (17-59) 10/03/17 05:30 ALT 40 U/L (7-56) 10/03/17 05:30 Alkaline Phosphatase 68 U/L (38-126) 10/03/17 05:30 Lactate Dehydrogenase 426 U/L (333-699) 10/02/17 11:10 Total Creatine Kinase 370 U/L (35-230) H 10/02/17 11:10 CK-MB (CK-2) 3.0 ng/mL (0.0-3.6) 10/02/17 11:10 CK-MB (CK-2) % 1.1 % (2.5-3.0) L 10/01/17 18:30 Troponin I < 0.01 ng/mL 10/02/17 11:10 Total Protein 6.0 g/dL (5.8-8.3) 10/03/17 05:30 Albumin 3.4 g/dL (3.0-4.8) 10/03/17 05:30 Globulin 2.6 gm/dL 10/03/17 05:30 Albumin/Globulin Ratio 1.3 (1.1-1.8) 10/03/17 05:30 Triglycerides 324 mg/dL (35-160) H 10/03/17 05:30 Cholesterol 129 mg/dL (130-200) L 10/03/17 05:30 LDL Cholesterol Direct 45 mg/dL (0-129) 10/03/17 05:30 HDL Cholesterol 44 mg/dL (29-60) 10/03/17 05:30 TSH 3rd Generation 1.95 mIU/mL (0.46-4.68) 10/01/17 18:30 Urine Color Yellow (YELLOW) 10/01/17 21:31 Urine Appearance Clear (CLEAR) 10/01/17 21:31 Urine pH 5.5 (4.7-8.0) 10/01/17 21:[address] [place] >= 1.030 (1.005-1.035) 10/01/17 21:31 Urine Protein Trace mg/dL (<30 mg/dL) H 10/01/17 21:31 Urine Glucose (UA) Negative mg/dL (NEGATIVE) 10/01/17 21:31 Urine Ketones 15 mg/dL (NEGATIVE) H 10/01/17 21:31 Urine Blood Negative (NEGATIVE) 10/01/17 21:31 Urine Nitrate Negative (NEGATIVE) 10/01/17 21:31 Urine Bilirubin Negative (NEGATIVE) 10/01/17 21:31 Urine Urobilinogen 0.2 E.U./dL (<1 E.U./dL) 10/01/17 21:31 Ur Leukocyte Esterase Negative [place]/uL (NEGATIVE) 10/01/17 21:31 Urine RBC Negative /hpf (0-2) 10/01/17 21:31 Urine WBC 1 - 3 /hpf (0-6) 10/01/17 21:31 Ur Epithelial Cells 1 - 3 /hpf (0-5) 10/01/17 21:31 Urine Bacteria Few (NEG) 10/01/17 21:31 Urine Opiates Screen Negative (NEGATIVE) 10/01/17 21: Urine Methadone Screen Negative (NEGATIVE) 10/01/17 21: Ur Barbiturates Screen Negative (NEGATIVE) 10/01/17 21:31 Ur Phencyclidine Scrn Negative (NEGATIVE) 10/01/17 21:31 Ur Amphetamines Screen Negative (NEGATIVE) 10/01/17 21:31 U Benzodiazepines Scrn Negative (NEGATIVE) 10/01/17 21:31 U Oth Cocaine Metabols Negative (NEGATIVE) 10/01/17 21:31 U Cannabinoids Screen Negative (NEGATIVE) 10/01/17 21:31 Alcohol, Quantitative 32 mg/dL (0-10) H 10/01/17 18:30 - Hospital Course Hospital Course: 47 year old male with a past medical history of hypertension, dyslipidemia, DM II and alcohol abuse who presented for a syncopal episode. On the day of admission he was at work and ate some greasy food that made his nauseous. He went to the rest room and wretched, but did not vomit. He then urinated and walked out of the bathroom and passed out. He woke up after an indefinite period of time by a coworker and was brought into the Emergency Department [place] [facility] [place] Initial diagnostic tests were unrevealing, but the patient did have a blood alcohol level of 32 on admission and a laceration on the chin that was stitched in the Emergency Department. The patient was worked up for syncope and cardiology and neurology consults were placed. CT of the head, echocardiogram, EEG, troponin x3, orthostatic blood pressure and bilateral carotid ultrasound were all negative. The patient was found to have elevated triglycerides and started on Fenofibrate without an adverse effects. He was monitored for one night on remote telemetry and discharged the following day. Most likely, the patient experienced a vasovagal episode given the preceding wretching, coughing , and micturition seconds before passing out. He was also counselled on alcohol abstinence throughout the length of his stay and sent home discharged with the below written instructions. - Date & Time of H&P Date of H&P: 10/03/17 Time of H&P: 11:40 Discharge Exam - Head Exam Head Exam: ATRAUMATIC, NORMOCEPHALIC Additional comments: stitiches barely noticeable in the submental area, namely obscured by the patient goatee - Eye Exam Eye Exam: EOMI, Normal appearance - ENT Exam ENT Exam: Mucous Membranes Moist, Normal Oropharynx - Neck Exam Neck exam: Normal Inspection - Respiratory Exam Respiratory Exam: Clear to PA & Lateral, NORMAL BREATHING PATTERN - Cardiovascular Exam Cardiovascular Exam: RRR, +S1, +S2 - GI/Abdominal Exam GI & Abdominal Exam: Normal Bowel Sounds. absent: Distended, Guarding - Back Exam Back exam: NORMAL INSPECTION. absent: CVA tenderness (L), CVA tenderness (R) - Neurological Exam Neurological exam: Alert, CN II-XII Intact, Oriented x3 - Psychiatric Exam Psychiatric exam: Normal Affect, Normal Mood - Skin Skin Exam: Dry, Intact, Normal Color, Warm Discharge Plan - Discharge Medications Prescriptions: Fenofibrate [Tricor] 145 mg PO DAILY #30 tab - Follow Up Plan Condition: STABLE Disposition: HOME/ ROUTINE Instructions: Syncope (DC), Syncope (GEN) Additional Instructions: 1) Patient to take any prescribed medication, as directed. 2) Patient to follow up with Primary Medical Doctor with seven days of discharge. 3) Patient to return to the ED for any worsening of symptoms. Referrals: PCP,NO [Primary Care Provider] - <Dash Perez - Last Filed: 10/03/17 22:24> Provider - Provider Date of Admission: 10/01/17 21:17 Attending physician: Dash Perez MD Primary care physician: ALLYSSA PRIMARY CARE PROVIDER Hospital Course - Lab Results Lab Results: Most Recent Lab Values WBC 5.5 10^3/ul (4.5-11.0) 10/03/17 05:30 RBC 4.01 10^6/uL (3.5-6.1) 10/03/17 05:30 Hgb 12.1 g/dL (14.0-18.0) L 10/03/17 05:30 Hct 35.8 % (42.0-52.0) L 10/03/17 05:30 MCV 89.3 fl (80.0-105.0) 10/03/17 05:30 MCH 30.2 pg (25.0-35.0) 10/03/17 05:30 MCHC 33.8 g/dl (31.0-37.0) 10/03/17 05:30 RDW 13.1 % (11.5-14.5) 10/03/17 05:30 Plt Count 230 10^3/uL (120.0-450.0) 10/03/17 05:30 MPV 9.9 fl (7.0-11.0) 10/03/17 05:30 Gran % 46.9 % (50.0-68.0) L 10/03/17 05:30 Lymph % (Auto) 43.5 % (22.0-35.0) H 10/03/17 05:30 [place] % (Auto) 6.5 % (1.0-6.0) H 10/03/17 05:30 Eos % (Auto) 2.7 % (1.5-5.0) 10/03/17 05:30 Baso % (Auto) 0.4 % (0.0-3.0) 10/03/17 05:30 Gran # 2.58 (1.4-6.5) 10/03/17 05:30 Lymph # 2.4 (1.2-3.4) 10/03/17 05:30 [place] # 0.4 (0.1-0.6) 10/03/17 05:30 Eos # 0.2 (0.0-0.7) 10/03/17 05:30 Baso # 0.02 K/mm3 (0.0-2.0) 10/03/17 05:30 PT 11.2 SECONDS (9.4-12.5) 10/01/17 18:30 INR 1.03 (0.93-1.08) 10/01/17 18:30 APTT 25.9 Seconds (25.1-36.5) 10/01/17 18:30 Sodium 141 mmol/L (132-148) 10/03/17 05:30 Potassium 3.7 mmol/L (3.6-5.0) 10/03/17 05:30 Chloride 105 mmol/L (98-107) 10/03/17 05:30 Carbon Dioxide 28 mmol/L (21-33) 10/03/17 05:30 Anion Gap 11 (10-20) 10/03/17 05:30 BUN 10 mg/dL (7-21) 10/03/17 05:30 Creatinine 0.9 mg/dl (0.8-1.5) 10/03/17 05:30 Est GFR ( Amer) > 60 10/03/17 05:30 Est GFR (Non-Af Amer) > 60 10/03/17 05:30 POC Glucose (mg/dL) 274 mg/dL (65-110) H 10/03/17 11:25 Random Glucose 164 mg/dL (70-110) H 10/03/17 05:30 Hemoglobin A1c 7.8 % (4.2-6.5) H 10/01/17 18:30 Calcium 8.7 mg/dL (8.4-10.5) 10/03/17 05:30 Phosphorus 3.5 mg/dL (2.5-4.5) 10/02/17 05:40 Magnesium 1.5 mg/dL (1.7-2.2) L 10/02/17 05:40 Total Bilirubin 1.2 mg/dL (0.2-1.3) 10/03/17 05:30 AST 47 U/L (17-59) 10/03/17 05:30 ALT 40 U/L (7-56) 10/03/17 05:30 Alkaline Phosphatase 68 U/L (38-126) 10/03/17 05:30 Lactate Dehydrogenase 426 U/L (333-699) 10/02/17 11:10 Total Creatine Kinase 370 U/L (35-230) H 10/02/17 11:10 CK-MB (CK-2) 3.0 ng/mL (0.0-3.6) 10/02/17 11:10 CK-MB (CK-2) % 1.1 % (2.5-3.0) L 10/01/17 18:30 Troponin I < 0.01 ng/mL 10/02/17 11:10 Total Protein 6.0 g/dL (5.8-8.3) 10/03/17 05:30 Albumin 3.4 g/dL (3.0-4.8) 10/03/17 05:30 Globulin 2.6 gm/dL 10/03/17 05:30 Albumin/Globulin Ratio 1.3 (1.1-1.8) 10/03/17 05:30 Triglycerides 324 mg/dL (35-160) H 10/03/17 05:30 Cholesterol 129 mg/dL (130-200) L 10/03/17 05:30 LDL Cholesterol Direct 45 mg/dL (0-129) 10/03/17 05:30 HDL Cholesterol 44 mg/dL (29-60) 10/03/17 05:30 TSH 3rd Generation 1.95 mIU/mL (0.46-4.68) 10/01/17 18:30 Urine Color Yellow (YELLOW) 10/01/17 21:31 Urine Appearance Clear (CLEAR) 10/01/17 21:31 Urine pH 5.5 (4.7-8.0) 10/01/17 21:[address] [place] >= 1.030 (1.005-1.035) 10/01/17 21:31 Urine Protein Trace mg/dL (<30 mg/dL) H 10/01/17 21:31 Urine Glucose (UA) Negative mg/dL (NEGATIVE) 10/01/17 21:31 Urine Ketones 15 mg/dL (NEGATIVE) H 10/01/17 21:31 Urine Blood Negative (NEGATIVE) 10/01/17 21:31 Urine Nitrate Negative (NEGATIVE) 10/01/17 21:31 Urine Bilirubin Negative (NEGATIVE) 10/01/17 21:31 Urine Urobilinogen 0.2 E.U./dL (<1 E.U./dL) 10/01/17 21:31 Ur Leukocyte Esterase Negative [place]/uL (NEGATIVE) 10/01/17 21:31 Urine RBC Negative /hpf (0-2) 10/01/17 21:31 Urine WBC 1 - 3 /hpf (0-6) 10/01/17 21:31 Ur Epithelial Cells 1 - 3 /hpf (0-5) 10/01/17 21:31 Urine Bacteria Few (NEG) 10/01/17 21:31 Urine Opiates Screen Negative (NEGATIVE) 10/01/17 21:31 Urine Methadone Screen Negative (NEGATIVE) 10/01/17 21:31 Ur Barbiturates Screen Negative (NEGATIVE) 10/01/17 21:31 Ur Phencyclidine Scrn Negative (NEGATIVE) 10/01/17 21:31 Ur Amphetamines Screen Negative (NEGATIVE) 10/01/17 21:31 U Benzodiazepines Scrn Negative (NEGATIVE) 10/01/17 21:31 U Oth Cocaine Metabols Negative (NEGATIVE) 10/01/17 21:31 U Cannabinoids Screen Negative (NEGATIVE) 10/01/17 21:31 Alcohol, Quantitative 32 mg/dL (0-10) H 10/01/17 18:30 Attending/Attestation - Attestation I have personally seen and examined this patient.: Yes I have fully participated in the care of the patient.: Yes I have reviewed all pertinent clinical information, including history, physical exam and plan: Yes Notes (Text): 10/03/17 22:20 47 year old male with past medical history of hypertension, diabetes and alcohol abuse who presented after syncopal episode possibly vasovagal. He was seen by cardiology and neurology. He has extensive workup including EEG, echocardiogram and carotid dopplers as above. He was counselled on alcohol abstinence. He was on lisinopril for hypertension and started on tricor for dyslipidemia. He is discharged home to follow up with his pmd. Counselled on alcohol abstinence. Counselled on low fat, cholesterol diet. Dash Perez MD Hospitalist.
--- NOTE | 2017-10-06 08:27 | EEG ---
DATE: 10/02/2017 ELECTROENCEPHALOGRAM REPORT INTRODUCTION: This is a digitally recorded EEG monitoring using standard EEG montages. BACKGROUND RHYTHM: The EEG shows a background activity of 9-10 Hz, alpha activity in parieto-occipital region. The EEG activity is bilaterally symmetrical and synchronous. There is attenuation of the background activity on eye opening. No sleep recording was noted. ABNORMAL POTENTIALS: No spike, sharp waves, or focal slowing was seen. PHOTIC STIMULATION AND HYPERVENTILATION: Photic stimulation did not reveal any abnormality. Hyperventilation was not performed. IMPRESSION: Normal electroencephalogram. No epileptiform activity seen in this electroencephalogram recording. Negrita Narvaez MD
== END 2017-10-03 15:51 | disposition home or self-care (01) ==
LOC: ED 17:49 → ERH 21:17 → 3RSO 22:20
PROVIDERS: ADMIT Hospitalist; ATTEND Internal Medicine
DX: R55 Syncope and collapse (principal); M62.82 Rhabdomyolysis; S01.81XA Laceration without foreign body of other part of head, initial encounter; E83.42 Hypomagnesemia; I10 Essential (primary) hypertension; E78.00 Pure hypercholesterolemia, unspecified; E11.9 Type 2 diabetes mellitus without complications; F10.10 Alcohol abuse, uncomplicated; Y90.1 Blood alcohol level of 20-39 mg/100 ml; Z79.84 Long term (current) use of oral hypoglycemic drugs; W19.XXXA Unspecified fall, initial encounter; Y92.091 Bathroom in other non-institutional residence as the place of occurrence of the external cause
CPT/HCPCS: 36415; 70450; 80053; 80061; 80320; 80324; 80345; 80346; 80349; 80353; 80358; 80361; 81001; 82550; 82553; 82948; 83036; 83615; 83735; 83992; 84100; 84443; 84484; 85025; 85610; 85730; 87040; 93005; 93306; 93880; 95812; 99285; G0378; J1650; J1885; J3411; J3475; J7040